=== PATIENT | female | born 1960 | race Caucasian/White ===

== ENCOUNTER 2022-05-19 14:58 | Emergency (ER) | payer BC ==
[~2022-05-19] VITALS: Ht 165 cm; Wt 141.0 kg
[2022-05-19 15:39] LABS: BASOPHILS % (AUTO) 0 % (0-10); EOSINOPHILS # (AUTO) 0.4 10^3/uL (0.0-0.3); EOSINOPHILS % (AUTO) 4 % (0-10); HEMATOCRIT 39 % (35-52); HEMOGLOBIN 13.4 g/dL (11.5-16.0); LYMPHOCYTES # (AUTO) 3.2 10^3/uL (1.0-4.0); LYMPHOCYTES % (AUTO) 33 % (12-44); MEAN CORPUSCULAR HEMOGLOBIN 31 pg (25-34); MEAN CORPUSCULAR HGB CONC 34 g/dL (32-36); MEAN CORPUSCULAR VOLUME 89 fL (80-99); MEAN PLATELET VOLUME 8.6 fL (9.0-12.2); MONOCYTES # (AUTO) 0.8 10^3/uL (0.0-1.0); MONOCYTES % (AUTO) 8 % (0-12); NEUTROPHILS # (AUTO) 5.1 10^3/uL (1.8-7.8); NEUTROPHILS % (AUTO) 54 % (42-75); PLATELET COUNT 261 10^3/uL (130-400); WHITE BLOOD COUNT 9.6 10^3/uL (4.3-11.0)
--- NOTE | 2022-05-19 15:46 | ED Lower Extremity ---
General Chief Complaint: Lower Extremity Stated Complaint: LEFT LEG SWELLING Nursing Triage Note: PT PRESENTS TO ED WITH COMPLAINTS OF CELLULITIS TO L PRASAD X 6 WEEKS. PT REPORTS SHE HAS BEEN TAKING ANTIBIOTICS FOR 4 1/2 WEEKS AND [facility] HAS BEEN MANAGING IT. PT REPORTS SHE FEELS LIKE IT IS NOT GETTING BETTER DESPITE THE ANTIBIOTICS. Source: patient Exam Limitations: no limitations History of Present Illness Date Seen by Provider: May 19, 2022 Time Seen by Provider: 15:20 Initial Comments Patient is a 61-year-old female who presents to the emergency department for evaluation of left lower extremity cellulitis that has been present for approximately 6 weeks. Patient has been on antibiotics for over a month. She states she initially was on Bactrim and was then placed on doxycycline. She states she recently finished the antibiotics few days ago. She states she feels like the redness has not fully resolved. She denies any fever. States the area is slightly swollen. Area is not warm to touch per her report. No drainage from the affected area. She states she has not followed up with her PCP since the antibiotics completed. Allergies and Home Medications Allergies Coded Allergies: tetracycline (Verified Allergy, Unknown, 05/19/22) Patient Home Medication List Home Medication List Reviewed: Yes Review of Systems Constitutional: no symptoms reported EENTM: no symptoms reported Respiratory: no symptoms reported Cardiovascular: no symptoms reported Gastrointestinal: no symptoms reported Genitourinary: no symptoms reported Musculoskeletal: see HPI Skin: see HPI Past [id number] Hx Patient Social History Tobacco Use?: No Substance use?: No Alcohol Use?: No Pt feels they are or have been: No Past Medical History Surgery/Hospitalization HX: PMH: R BELOW THE KNEE AMPUTATION, HYST, SINUS SX, DM, ASTHMA, HTN, ALLERGIES, DEPRESSION Physical Exam Vital Signs Vital Signs - First Documented 05/19/22 15:14 Temp 36.2 Pulse 92 Resp 18 B/P (MAP) 142/67 (92) Pulse Ox 97 Capillary Refill : Less Than 3 Seconds Height, Weight, BMI Height: '" Weight: lbs. oz. kg; 51.00 BMI Method: General Appearance: WD/WN, no apparent distress HEENT: PERRL/EOMI, normal ENT inspection, TMs normal, pharynx normal Neck: non-tender, full range of motion, supple, normal inspection Cardiovascular: regular rate, rhythm Respiratory: chest non-tender, lungs clear, normal breath sounds, no respiratory distress, no accessory muscle use Gastrointestinal: normal bowel sounds, non tender, soft Neurologic/Psychiatric: no motor/sensory deficits, alert, normal mood/affect, o riented x 3 Skin: normal color, warm/dry Very minimal redness noted to the left anterior lower leg; no war mth/fluctuance/induration noted in this area; no calf pain or tightness noted Progress/Results/Core Measures Results/Orders Lab Results Laboratory Tests Test 05/19/22 15:33 Range/Units White Blood Count 9.6 4.3-11.0 10^3/uL Red Blood Count 4.35 3.80-5.11 10^6/uL Hemoglobin 13.4 11.5-16.0 g/dL Hematocrit 39 35-52 % Mean Corpuscular Volume 89 80-99 fL Mean Corpuscular Hemoglobin 31 25-34 pg Mean Corpuscular Hemoglobin Concent 34 32-36 g/dL Red Cell Distribution Width 12.5 10.0-14.5 % Platelet Count 261 130-400 10^3/uL Mean Platelet Volume 8.6 L 9.0-12.2 fL Immature Granulocyte % (Auto) 0 % Neutrophils (%) (Auto) 54 42-75 % Lymphocytes (%) (Auto) 33 12-44 % Monocytes (%) (Auto) 8 0-12 % Eosinophils (%) (Auto) 4 0-10 % Basophils (%) (Auto) 0 0-10 % Neutrophils # (Auto) 5.1 1.8-7.8 10^3/uL Lymphocytes # (Auto) 3.2 1.0-4.0 10^3/uL Monocytes # (Auto) 0.8 0.0-1.0 10^3/uL Eosinophils # (Auto) 0.4 H 0.0-0.3 10^3/uL Basophils # (Auto) 0.0 0.0-0.1 10^3/uL Immature Granulocyte # (Auto) 0.0 0.0-0.1 10^3/uL Sodium Level 135 135-145 MMOL/L Potassium Level 3.6 3.6-5.0 MMOL/L Chloride Level 98 98-107 MMOL/L Carbon Dioxide Level 25 21-32 MMOL/L Anion Gap 12 5-14 MMOL/L Blood Urea Nitrogen 17 7-18 MG/DL Creatinine 0.70 0.60-1.30 MG/DL Estimat Glomerular Filtration Rate 100 BUN/Creatinine Ratio 24 Glucose Level 118 H 70-105 MG/DL Calcium Level 9.4 8.5-10.1 MG/DL Corrected Calcium 9.4 8.5-10.1 MG/DL Total Bilirubin 1.1 H 0.1-1.0 MG/DL Aspartate Amino Transf (AST/SGOT) 24 5-34 U/L Alanine Aminotransferase (ALT/SGPT) 33 0-55 U/L Alkaline Phosphatase 66 40-136 U/L C-Reactive Protein High Sensitivity 0.46 0.00-0.50 MG/DL Total Protein 7.2 6.4-8.2 GM/DL Albumin 4.0 3.2-4.5 GM/DL My Orders Orders - BON CARLIN NECKTIE TURNER Cbc With Automated Diff (05/19/22 15:25) Comprehensive Metabolic Panel (05/19/22 15:25) Hs C Reactive Protein (05/19/22 15:25) Iv/Invasive Line Insertion .IV INSERT (05/19/22 15:25) Ceftriaxone 1 Gm Pre-Mix (Rocephin 1 Gm (05/19/22 16:15) Vital Signs/I&O 05/19/22 05/19/22 15:14 17:00 Temp 36.2 36.2 Pulse 92 92 Resp 18 18 B/P (MAP) 142/67 (92) 142/67 Pulse Ox 97 97 Blood Pressure Mean: 92 Progress Progress Note : Progress Note Patient is nontoxic and well-hydrated on exam. Area of concern is very minimally erythematous and there is no discrete evidence of any significant infectious process. DVT felt very unlikely. Pretest probability very low. No indication for an ultrasound at this time. Laboratory evaluation is very reassuring. No leukocytosis or elevated CRP noted. Patient was given a gram of Rocephin via IV. I told her that I am very reassured by the lab work and there appears to be no specific findings concerning for infection necessitating further antibiotics at this time. I discussed the importance of very close follow-up with PCP in 24 to 48 hours. Return precautions for urgent symptomology discussed. Patient verbalized understanding. Departure Impression Primary Impression: Cellulitis of left lower leg Disposition: HOME, SELF-CARE Condition: Stable Departure-Patient Inst. Decision time for Depature: 16:10 Referrals: [facility] (PCP) Primary Care Physician ASHLEE TORREZ APRN (Family) Primary Care Physician Patient Instructions: Cellulitis (Skin Infection), Adult ED Add. Discharge Instructions: Your labs today are very reassuring. It is unlikely you have any significant infection of your lower leg that needs hospitalization and IV antibiotics at this time. Follow-up with your regular provider as soon as possible for reeval uation. All discharge instructions reviewed with patient and/or family. Voiced understanding. BON CARLIN APRN May 19, 2022 15:46
[2022-05-19 15:59] LABS: BILIRUBIN,TOTAL 1.1 MG/DL (0.1-1.0); CALCIUM 9.4 MG/DL (8.5-10.1); CREATININE SERUM 0.7 MG/DL (0.60-1.30); POTASSIUM 3.6 MMOL/L (3.6-5.0); TOTAL PROTEIN 7.2 GM/DL (6.4-8.2)
[2022-05-19] MEDS ORDERED: cefTRIAXone 1 GM PRE-MIX 50 ML IV ONE (16:15)
[2022-05-19 17:00] VITALS: BP 142/67
== END 2022-05-19 17:00 | disposition home or self-care (01) ==
LOC: EDUNIT# 14:58 → ER 15:03
DX: L03.116 Cellulitis of left lower limb (principal)
CPT/HCPCS: 36415; 80053; 85025; 86141; 99281